=== PATIENT | female | born 1960 | race Caucasian/White ===

== ENCOUNTER → 2017-02-03 | Outpatient (CLI) | payer OTHER | LOC: FIMAGING 11:28 | DX: Z12.31 Encounter for screening mammogram for malignant neoplasm of breast (principal); Z85.3 Personal history of malignant neoplasm of breast | CPT/HCPCS: G0202 ==

== ENCOUNTER → 2017-02-26 | Outpatient (CLI) | payer OTHER | LOC: BMCIMAGING 11:07 | PROVIDERS: ATTEND Internal Medicine | DX: Z01.818 Encounter for other preprocedural examination (principal) ==

== ENCOUNTER → 2017-04-15 | Outpatient (CLI) | payer OTHER | LOC: BMCIMAGING 13:49 | PROVIDERS: ATTEND Internal Medicine | DX: R22.42 Localized swelling, mass and lump, left lower limb (principal) ==

== ENCOUNTER → 2017-10-08 | Outpatient (CLI) | payer OTHER | LOC: BMCIMAGING 14:55 | PROVIDERS: ATTEND Internal Medicine | DX: Z13.820 Encounter for screening for osteoporosis (principal); M81.0 Age-related osteoporosis without current pathological fracture ==

== ENCOUNTER → 2017-10-20 | Outpatient (CLI) | payer OTHER | LOC: BMCIMAGING 13:10 | PROVIDERS: ATTEND Nurse Practitioner Adult Health | DX: Z01.818 Encounter for other preprocedural examination (principal) ==

== ENCOUNTER 2019-02-15 16:48 | Observation (INO) | payer OTHER ==
--- NOTE | 2019-02-15 18:12 | EDPHY ---
H & P Stated Complaint: left foot infection, sent by PCP, left ankle replacement 2017 Time Seen by Provider: 02/15/19 17:34 HPI/ROS: CHIEF COMPLAINT: Left foot infection HISTORY OF PRESENT ILLNESS: 58-year-old immunocompetent female with history of left ankle arthroplasty [address] Mikey Orr a [facility] was sent by her PCP to the ER for evaluation. Patient describes 3 days ago she stepped on a would toothpick in her house, impacting the left forefoot approximately 1st MTP region. There is a piece of toothpick which was missing unclear if in her skin or possibly still at home. She has noticed progressive erythema to the plantar aspect of her foot which has now included the dorsal aspect of the foot. Saw her PCP, is started on Augmentin, has taken single dose of Augmentin referred to the ER for evaluation for concerns over PRIMARY CARE PROVIDER:Dr. Keisha Pennington REVIEW OF SYSTEMS: 10 systems reviewed and negative with the exception of the elements mentioned in the history of present illness PAST MEDICAL & SURGICAL HISTORY: Left ankle arthroplasty January 2018 at [facility]. Bilateral knee arthroplasty. Right shoulder arthroplasty. Up-to-date tetanus SOCIAL HISTORY: Nonsmoker. . PHYSICAL EXAM (Prior to examination, patient consented to physical exam, hands were washed and my usual and customary physical exam procedures followed) 1) GENERAL: Well-developed, well-nourished, alert and oriented. Appears to be in no acute distress. 2) HEAD: Normocephalic, atraumatic 3) HEENT: Pupils equal, round, reactive to light bilaterally. Sclera anicteric. 4) NECK: Full range of motion, no meningeal signs. 5) LUNGS: Clear auscultation bilaterally, no wheezes, no rhonchi, no retractions. 6) HEART: Regular rate and rhythm, no murmur, no heave, no gallop. 7) ABDOMEN: No guarding, no rebound, no focal tenderness, negative McBurney's, negative Riddle's, negative Rovsing's, negative peritoneal sign, 8) MUSCULOSKELETAL: Left lower extremity: Surgical incisions left ankle noted. Full range of motion left ankle. No pain with axial loading of the ankle. On the plantar aspect of the medial forefoot puncture wound with surrounding erythema , induration tenderness, noted. There is similar skin findings on the dorsal aspect of the foot with lymphangitic streaking noted. There is no crepitus. She is able to bear weight. There is no palpable foreign body. Moving all extremities, no focal areas of tenderness, no obvious trauma. No peripheral edema or discoloration. 9) BACK: No CVA tenderness, no midline vertebral tenderness, no fluctuance, no step-off, no obvious trauma, no visual or palpable abnormality. 10) SKIN: No rash, no petechiae. 11) Psychiatric: Patient is oriented X 3, there is no agitation. DIFFERENTIAL DIAGNOSIS: In no particular order include but limited to retained foreign body, orthopedic hardware infection, septic arthritis, cellulitis. - Personal History Current Tetanus Diphtheria and Acellular Pertussis (TDAP): Yes - Medical/Surgical History Hx Diabetes: No Other PMH: left ankle, right shoulder, bilateral knee replacements, DIC 1999, - Social History Smoking Status: Former smoker Constitutional: Initial Vital Signs Temperature (C) 36.7 C 02/15/19 16:52 Heart Rate 82 02/15/19 16:52 Respiratory Rate 16 02/15/19 16:52 Blood Pressure 133/84 H 02/15/19 16:52 O2 Sat (%) 95 02/15/19 16:52 O2 Delivery Mode Room Air Allergies/Adverse Reactions: No Known Allergies Allergy (Verified 02/15/19 19:44) Home Medications: Medication Instructions Recorded Herbals/Supplements -Info Only 1 ea PO DAILY 12/12/16 Aspirin [Aspirin 81mg (*)] 81 mg PO DAILY 02/15/19 Multivitamins [Multivitamin (*)] 1 each PO DAILY 02/15/19 clonazePAM [klonoPIN (*)] 1 mg PO HS PRN 02/15/19 Medical Decision Making - Diagnostics Imaging Results: Imaging Impressions Extremity Ultrasound 02/15/19 18:05 Impression: Nonspecific 2 mm echogenic focus may represent a tiny foreign body or less likely gas. Comment: If additional imaging is desired, CT of the foot without contrast may be the next most reasonable test to evaluate for foreign body. Findings discussed with Emergency Department physician, Sheree Perez on 02/15, 19:30. Images reviewed myself ED Course/Re-evaluation: 6:32 p.m.: Patient was also seen exam by Dr. Anjali Ignacio in the ER. This time I think that orthopedic hardware infection/septic arthritis of left ankle is less than likely in this patient. However given her history of left ankle arthroplasty she is definitely a risk of this and she has clinical exam findings consistent with cellulitis, possible retained foreign body. Will plan on ultrasound of the puncture wound site to evaluate retained foreign body and/ or abscess as well as IV antibiotics, admission. She is agreeable with this plan. Doubt necrotizing fasciitis. 6:49 p.m.: Consultation with hospitalist Dr Amaya who will admit patient - Data Points Laboratory Results: Laboratory Results 02/15/19 18:15 02/15/19 18:15 02/15/19 02/15/19 18:15 18:15 WBC 9.15 10^3/uL 10^3/uL (3.80-9.50) RBC 4.35 10^6/uL 10^6/uL (4.18-5.33) Hgb 13.1 g/dL g/dL (12.6-16.3) Hct 40.3 % % (38.0-47.0) MCV 92.6 fL fL (81.5-99.8) MCH 30.1 pg pg (27.9-34.1) MCHC 32.5 g/dL g/dL (32.4-36.7) RDW 13.0 % % (11.5-15.2) Plt Count 255 10^3/uL 10^3/uL (150-400) MPV 10.5 fL fL (8.7-11.7) Neut % (Auto) 73.1 % % (39.3-74.2) Lymph % (Auto) 19.6 % % (15.0-45.0) [place] % (Auto) 5.8 % % (4.5-13.0) Eos % (Auto) 0.8 % % (0.6-7.6) Baso % (Auto) 0.3 % % (0.3-1.7) Nucleat RBC Rel Count 0.0 % % (0.0-0.2) Absolute Neuts (auto) 6.69 10^3/uL H 10^3/uL (1.70-6.50) Absolute Lymphs (auto) 1.79 10^3/uL 10^3/uL (1.00-3.00) Absolute Monos (auto) 0.53 10^3/uL 10^3/uL (0.30-0.80) Absolute Eos (auto) 0.07 10^3/uL 10^3/uL (0.03-0.40) Absolute Basos (auto) 0.03 10^3/uL 10^3/uL (0.02-0.10) Absolute Nucleated RBC 0.00 10^3/uL 10^3/uL (0-0.01) Immature Gran % 0.4 % % (0.0-1.1) Immature Gran # 0.04 10^3/uL 10^3/uL (0.00-0.10) Sodium 140 mEq/L mEq/L (135-145) Potassium 3.7 mEq/L mEq/L (3.5-5.2) Chloride 100 mEq/L mEq/L (97-110) Carbon Dioxide 24 mEq/l mEq/l (22-31) Anion Gap 16 mEq/L H mEq/L (6-14) BUN 16 mg/dL mg/dL (7-23) Creatinine 0.7 mg/dL mg/dL (0.6-1.0) Estimated GFR > 60 Glucose 97 mg/dL mg/dL (70-100) Calcium 9.6 mg/dL mg/dL (8.5-10.4) Medications Given: Cefazolin Sodium/Dextrose (Ancef) 100 mls @ 200 mls/hr IV Q8HRS JAIMIE PRN Reason: Protocol Stop: 03/17/19 21:59 Last Admin: 02/15/19 21:10 Dose: 100 mls Departure - Departure Disposition: [facility] Clinical Impression: Cellulitis of left foot Condition: Fair
[2019-02-15 18:23] LABS: PLATELET COUNT 255 10^3/uL (150-400)
[2019-02-15] MEDS ORDERED: PROMETHAZINE HCL 25 MG/ML INJ IVP PRN (20:23)
[2019-02-15] MEDS ORDERED: HYDROCODONE/APAP 5/325 TAB PO PRN (20:23)
[2019-02-15] MEDS ORDERED: oxyCODONE IR 5 MG TAB PO PRN (20:23)
[2019-02-15] MEDS ORDERED: HYDROmorphONE/DILAUDID 1 MG/ML INJ IVP PRN (20:23)
[2019-02-15] MEDS ORDERED: ONDANSETRON 4 MG/2 ML VIAL IVP PRN (20:23)
[2019-02-15] MEDS ORDERED: ACETAMINOPHEN 325 MG TAB PO PRN (20:23)
[2019-02-15] MEDS ORDERED: ONDANSETRON DISINTEGRATING 4 MG TAB PO PRN (20:23)
--- NOTE | 2019-02-15 20:23 | PDGENHP ---
History and Physical - Chief Complaint foot pain - History of Present Illness 58 yo F with PMH that includes DIC following childbirth and HELLP syndrome as well as multiple orthopedic surgeries including left ankle replacement, bilateral TKA and right shoulder replacement who presents with pain and redness of her left foot after stepping on a toothpick yesterday. She notes her dog was likely chewing on the toothpick and she was walking barefoot when she stepped on it accidentally. She states she tried pulling it out and it was very hard to remove and when it came out the tip of it was not there and she is concerned it may still be lodged in her foot. She saw her PCP today as the foot was more red and there was some streaking up her calf and he recommended that given the hardware in her ankle that she come to ER for further evaluation. She has not had fever or chills, she has taken only one dose of augmentin prior to coming to ER. History Information - Allergies/Home Medication List Allergies/Adverse Reactions: No Known Allergies Allergy (Verified 02/15/19 19:44) Home Medications: Herbals/Supplements -Info Only 1 ea PO DAILY 12/12/16 [Last Taken Unknown] Aspirin [Aspirin 81mg (*)] 81 mg PO DAILY 02/15/19 [Last Taken 02/15/19] Multivitamins [Multivitamin (*)] 1 each PO DAILY 02/15/19 [Last Taken Unknown] clonazePAM [klonoPIN (*)] 1 mg PO HS PRN 02/15/19 [Last Taken Unknown] I have personally reviewed and updated: family history, medical history, social history, surgical history - Past Medical History Additional medical history: hx of HELLP syndrome and DIC following of her baby--6 week ICU stay - Surgical History Additional surgical history: multiple orthopedic surgeries--B TKA, left ankle replacement and prior left ankle scope, right shoulder replacement - Family History Positive for: non-pertinent - Social History Smoking Status: Former smoker Alcohol Use: Rarely Drug Use: None Additional social history: , 1 child Review of Systems Review of Systems: ROS: 10pt was reviewed & negative except for what was stated in HPI & below Physical Exam Physical Exam: Temp Pulse Resp BP Pulse Ox 36.8 C 65 16 136/83 H 95 02/15/19 19:28 02/15/19 19:28 02/15/19 19:28 02/15/19 19:28 02/15/19 19:28 Constitutional: no apparent distress, appears nourished Eyes: PERRL, anicteric sclera Ears, Nose, Mouth, Throat: moist mucous membranes, hearing normal Cardiovascular: regular rate and rhythym, no murmur, rub, or gallop, edema Respiratory: no respiratory distress, no rales or rhonchi Gastrointestinal: normoactive bowel sounds Genitourinary: no bladder tenderness Skin: warm, erythema (over left foot with streaking) Musculoskeletal: full muscle strength, no muscle tenderness Neurologic: AAOx3 Psychiatric: interacting appropriately, not anxious, not encephalopathic Lab Data & Imaging Review 02/15/19 18:15 02/15/19 18:15 WBC 9.15 10^3/uL (3.80-9.50) 02/15/19 18:15 RBC 4.35 10^6/uL (4.18-5.33) 02/15/19 18:15 Hgb 13.1 g/dL (12.6-16.3) 02/15/19 18:15 Hct 40.3 % (38.0-47.0) 02/15/19 18:15 MCV 92.6 fL (81.5-99.8) 02/15/19 18:15 MCH 30.1 pg (27.9-34.1) 02/15/19 18:15 MCHC 32.5 g/dL (32.4-36.7) 02/15/19 18:15 RDW 13.0 % (11.5-15.2) 02/15/19 18:15 Plt Count 255 10^3/uL (150-400) 02/15/19 18:15 MPV 10.5 fL (8.7-11.7) 02/15/19 18:15 Neut % (Auto) 73.1 % (39.3-74.2) 02/15/19 18:15 Lymph % (Auto) 19.6 % (15.0-45.0) 02/15/19 18:15 [place] % (Auto) 5.8 % (4.5-13.0) 02/15/19 18:15 Eos % (Auto) 0.8 % (0.6-7.6) 02/15/19 18:15 Baso % (Auto) 0.3 % (0.3-1.7) 02/15/19 18:15 Nucleat RBC Rel Count 0.0 % (0.0-0.2) 02/15/19 18:15 Absolute Neuts (auto) 6.69 10^3/uL (1.70-6.50) H 02/15/19 18:15 Absolute Lymphs (auto) 1.79 10^3/uL (1.00-3.00) 02/15/19 18:15 Absolute Monos (auto) 0.53 10^3/uL (0.30-0.80) 02/15/19 18:15 Absolute Eos (auto) 0.07 10^3/uL (0.03-0.40) 02/15/19 18:15 Absolute Basos (auto) 0.03 10^3/uL (0.02-0.10) 02/15/19 18:15 Absolute Nucleated RBC 0.00 10^3/uL (0-0.01) 02/15/19 18:15 Immature Gran % 0.4 % (0.0-1.1) 02/15/19 18:15 Immature Gran # 0.04 10^3/uL (0.00-0.10) 02/15/19 18:15 Sodium 140 mEq/L (135-145) 02/15/19 18:15 Potassium 3.7 mEq/L (3.5-5.2) 02/15/19 18:15 Chloride 100 mEq/L (97-110) 02/15/19 18:15 Carbon Dioxide 24 mEq/l (22-31) 02/15/19 18:15 Anion Gap 16 mEq/L (6-14) H 02/15/19 18:15 BUN 16 mg/dL (7-23) 02/15/19 18:15 Creatinine 0.7 mg/dL (0.6-1.0) 02/15/19 18:15 Estimated GFR > 60 02/15/19 18:15 Glucose 97 mg/dL (70-100) 02/15/19 18:15 Calcium 9.6 mg/dL (8.5-10.4) 02/15/19 18:15 Visualized and Interpreted imaging results: Yes Interpretation: left foot xray: no foreign body or osteo. left foot US: ? foreign body versus less likely gas Assessment & Plan Assessment: 58 yo F with PMH of DIC/HELLP remotely and multiple joint replacements thought to possibly be due to remote complications from DIC presenting with cellulitis with ? retained foreign body # cellulitis: relatively mild and without systemic sxs but with possible retained foreign body noted on US. Started on ancef which will be continued for now. CT to further evaluate for possible retained splinter from toothpick. Patient very concerned regarding the infections proximity to her ankle hardware and will ask ID to consult regarding that as well as to help coordinate OP therapy. # ? retained foreign body: as above, CT pending. If confirmed on CT may require ortho consult. # multiple orthopedic issues: with multiple joint replacements already and more planned, followed closely by ortho, very concerned regarding possible hardware infection as above # hx of DIC # observation status Patient new to my care. Old records reviewed and summarized as above. Care plan reviewed with ER doctor as above, further hx obtained from patients present at bedside.
[2019-02-15] MEDS ORDERED: clonazePAM 1 MG TAB PO PRN (20:25)
[2019-02-15] MEDS: ceFAZolin 2 GM/DEXTROSE 100 ML IV SCH (21:10)
[2019-02-16] MEDS: ceFAZolin 2 GM/DEXTROSE 100 ML IV SCH ×2 (05:20→13:13)
[2019-02-16] MEDS ORDERED: MULTIVITAMINS 1 EACH TAB PO SCH (09:00)
[2019-02-16] MEDS ORDERED: ASPIRIN 81 MG CHEWABLE TAB PO SCH (09:00)
--- NOTE | 2019-02-16 11:56 | ASMTCMCOM ---
CM Note CM Note Notes: Patient plan of care reviewed in am rounds. No foreign body in foot. Patient is medically cleared to discharge, No needs identified. Plan: Dc to home with outpatient follow up. Date Signed: 02/16/2019 11:55 AM Electronically Signed By:Dhara Wilder RN
--- NOTE | 2019-02-16 11:56 | ASMTLACE ---
LACE Length of stay for Answers: Less than 1 day current admission Comorbidities - select Answers: Opioid dependence all that apply / Chronic pain # of Emergency department Answers: 1-2 visits in the last 6 months Score: 5 Date Signed: 02/16/2019 11:56 AM Electronically Signed By:Dhara Wilder RN
[2019-02-16 11:58] VITALS: BP 114/74
--- NOTE | 2019-02-16 12:11 | GDS ---
[f rep st] DISCHARGE SUMMARY DIAGNOSES: 1. Cellulitis, secondary to foreign body. 2. History of multiple joint replacements. CONSULTATIONS: Infectious Disease. PROCEDURES DONE: CT scan of the foot showing no evidence of foreign body left. HOSPITAL COURSE: The patient is a 58-year-old who has a history of multiple joint replacements, incl uding her left ankle, both knees, and right shoulder. She was walking and stepped on a toothpick volodymyr t stuck into her foot. She pulled it out and noted increasing erythema and pain. This is on the yusuf e foot that she had an ankle replacement and became quite distressed when the erythema started marchi ng up her foot. She came into the ER and was admitted for IV antibiotics. Overnight, her erythema h as improved somewhat and her tenderness. Infectious Disease agrees that her joint is likely not in d anger and she can complete an outpatient course of oral antibiotics. She will take Augmentin 875 twi ce daily for a week and follow up with her foot doctor next week. Certainly if her wound does not he al, she may likely have a foreign body still in place and will need that looked at by her surgeon. CONDITION ON DISCHARGE: Good. DISCHARGE MEDICATIONS: Please see discharge medication form. FOLLOWUP: Followup will be with her orthopedic surgeon. /[id number]/MODL
--- NOTE | 2019-02-16 15:02 | GCON ---
[f rep st] CONSULTATION INFECTIOUS DISEASE CONSULTATION DATE OF CONSULTATION: 02/16/2019 REQUESTING PHYSICIANDR: Meghana Amaya MD REASON FOR CONSULTATION: Left lower extremity cellulitis. HISTORY OF PRESENT ILLNESS: Patient is a 58-year-old female with a past medical history of multiple joint replacements whom I am asked to see in consultation for a left foot cellulitis, which began aft er patient stepped on a toothpick. The patient underwent left ankle replacement approximately 1 year ago and notes that she has had slow recovery with some neuralgic symptoms and swelling in the left a nkle persisting. On Friday, preceding admission, the patient stepped on a toothpick at home, punct uring the left foot at the base of the first metatarsal. She notes that the toothpick had been chewe d on by her dog prior to the puncture occurring. She notes it was hard to remove the piece of toothp ick that was imbedded in her foot, but she subsequently was able to do this. She does not know if th ere was any remaining toothpick lodged in her foot but does note the residual toothpick size was not that of a full toothpick. Patient subsequently developed pain, swelling and erythema, which extended onto the dorsal surface of the left foot. She did not have associated fevers, chills or night sweat s. She did not feel sick from a constitutional perspective. She was seen by her primary care provid er and noted to have cellulitis with recommendation to be evaluated in the emergency department given presence of hardware in her ankle with concerns for subsequent involvement of hardware. Patient did take 1 dose of Augmentin prior to presentation. She is unclear of when her last tetanus was adminis tered. Patient has been treated with cefazolin post hospitalization and has had significant improvem ent with decreased swelling and decreased erythema after its initiation. Patient has undergone imagi ng to assess for retained foreign body with plain film of the foot showing no evidence of foreign bod y; ultrasound showed a nonspecific 2 mm echogenic focus potentially representing foreign body or gas. Further evaluation with CT of the foot was performed, which did not show any clear evidence of jovan ined foreign body. Diffuse subcutaneous edema across the foot was noted. No abscess was noted. Nicolasa betancur is concerned, based on her previous ankle replacement and other joint replacements, about second zaina involvement of her joints due to her skin and soft tissue infection. She has not had any pain in her left thigh or inguinal region. She has not noted any adenopathy. Given the above findings, I a m now asked to assist in her ongoing management. PAST MEDICAL HISTORY: HELLP syndrome/DIC associated with childbirth and prolonged hospital stay, aut oimmune disease with considerations of ankylosing spondylitis versus fibromyalgia; did receive treatm ent with Humira and Enbrel previously but none since last fall. PAST SURGICAL HISTORY: Left ankle replacement approximately 1 year ago, bilateral total knee arthrop lasty, right shoulder replacement, . CURRENT MEDICATIONS: 1. Cefazolin 2 grams intravenously every 8 hours. 2. Klonopin as needed for insomnia. 3. Multivitamin by mouth daily. ALLERGIES: No known drug allergies. SOCIAL HISTORY: Patient does not smoke and rarely drinks alcohol. Pet dog at home. FAMILY HISTORY: Maternal grandmother with stroke. REVIEW OF SYSTEMS: Outside that noted in the HPI, remainder of 10-system review is unremarkable. PHYSICAL EXAMINATION: VITAL SIGNS: Temperature 36.8, heart rate 62, respiratory rate 16, blood pres sure 114/74. GENERAL: Patient is well nourished and well developed, in no acute distress. She appe ars nontoxic. HEENT: There is no scleral icterus, conjunctival injection or conjunctival petechiae. Oropharynx shows moist mucous membranes with no thrush. No nasal discharge. NECK: Supple without palpable lymphadenopathy or thyromegaly. CHEST: Clear to auscultation bilaterally without adventit ious sounds. Respiratory effort is normal. CARDIOVASCULAR: Regular rate and rhythm without murmurs , gallops or rubs. ABDOMEN: Soft, nontender, nondistended. There is no palpable organomegaly. [place] el sounds are present. MUSCULOSKELETAL: Left foot shows a small closed puncture site at the base of the first MTP along the plantar surface. There is mild tenderness without palpable fluctuance. The re is no palpable foreign body. There is no purulent drainage. There is mild associated edema. The re is a small area of erythema on the dorsal surface of the foot underlying the 1st and 2nd toes. Th e patient does not have any evidence of erythema onto the rest of the foot or lower leg. The left an kle shows no irritability with range of motion. Surgical incisions are well healed. Minimal overlyi ng warmth laterally. SKIN: See musculoskeletal. No stigmata of endocarditis. Skin is warm and dry to touch. LYMPHATICS: No cervical or supraclavicular nodes. No lymphangitis in the left lower ext remity. NEUROLOGIC: Patient is alert and interacts appropriately with examiner. Cranial nerves II- XII are grossly intact. Sensation is grossly intact. LABORATORY DATA: White blood cell count 9.1, hematocrit 40.3, platelets 255, neutrophils 73%. Serum creatinine 0.7. Blood cultures x2 sets are pending. IMAGING: As outlined above; reviewed and interpreted by me with Radiology today. IMPRESSION: 1. Left foot cellulitis status post puncture with toothpick: Cellulitis has improved significantly with use of cefazolin. Most likely, this will be due to typical skin jono, such as Staphylococcus a ureus or beta-hemolytic streptococci given improvement with cefazolin. Potential involvement of orop haryngeal jono from either dog mouth or human mouth based on toothpick puncture also of consideratio n. Primary question remains if there is a foreign body retained with imaging not showing evidence to date. This likely will be best defined over time as cellulitis will be unlikely to continue to reso lve in the setting of retained foreign body. If this was to occur, this would require removal for de finitive therapy. Given the clinical response to antibiotic therapy, I think she can transition to o ral antibiotics to complete treatment course. Current clinical findings do not suggest involvement o f left ankle joint, and this skin and soft tissue infection should not pose significant direct risk t o joint given discontinuous location. No clinical findings to suggest bacteremia, which would pose r isk of seeding of any of her prosthetic joints. RECOMMENDATIONS: 1. Augmentin 875 mg orally twice daily x7 days. 2. Discontinue cefazolin. 3. Agree with plans for followup with Orthopedic surgery as scheduled next week; if symptoms fail to resolve, would potentially need local expiration to ensure no residual foreign body present. 4. Advised patient to notify me for systemic symptoms or failure of foot symptoms to continue to imp rove or if recurrent swelling or erythema develops. 5. Advised to assess with her primary care physician date of last tetanus booster, and if this has n ot been administer within 10 years, would recommend she undergo tetanus boosting. Thank you for this consultation. We will continue to follow the patient with you. /[id number]/MODL
== END 2019-02-16 14:15 | disposition home or self-care (01) ==
LOC: F1N 20:17
PROVIDERS: ADMIT Internal Medicine; ATTEND Internal Medicine
DX: S91.332A Puncture wound without foreign body, left foot, initial encounter (principal); T79.8XXA Other early complications of trauma, initial encounter; L03.116 Cellulitis of left lower limb; W26.8XXA Contact with other sharp object(s), not elsewhere classified, initial encounter; Y92.019 Unspecified place in single-family (private) house as the place of occurrence of the external cause; Y99.8 Other external cause status; Z96.662 Presence of left artificial ankle joint; Z96.653 Presence of artificial knee joint, bilateral; Z96.611 Presence of right artificial shoulder joint; Z87.891 Personal history of nicotine dependence
CPT/HCPCS: 73630; 73700; 76882; 96374; 96376; 99285; G0378; J0690

== ENCOUNTER → 2019-05-04 | Outpatient (CLI) | payer OTHER | LOC: BMCIMAGING 14:08 ==